=== PATIENT | male | born 1985 | race Native Hawaiian/Other Pacific Islander ===

== ENCOUNTER 2020-02-20 00:30 | Observation (INO) | payer OTHER, SELFPAY ==
[2020-02-20] MEDS ORDERED: Ondansetron PF 4 MG/2 ML Vial IVP PRN ×2 (01:50→14:03)
[2020-02-20] MEDS ORDERED: Acetaminophen 325 MG TAB PO PRN (01:50)
[2020-02-20] MEDS ORDERED: Ondansetron ODT 4 MG TAB PO PRN (01:50)
[2020-02-20] MEDS ORDERED: Acetaminophen 650 MG Suppository PR PRN (01:50)
[2020-02-20 02:16] LABS: #Lymphocytes 1.5 thou/uL (1.20-3.40); #Monocytes 1.3 thou/uL (0.11-0.59); #Neutrophils 13.7 thou/uL (1.40-6.50); %Basophils 0.2 % (0.0-1.0); %Eosinophils 0.1 % (0.0-10.0); %Lymphocytes 9.3 % (21.0-51.0); %Monocytes 7.8 % (0.0-10.0); %Neutrophils 82.6 % (42.0-75.0); Hemoglobin 15.2 g/dL (14.0-18.0); Mean Corpuscular HGB CONC 35.1 g/dL (32.0-36.0); Mean Corpuscular Hemoglobin 31.3 pg (27.0-31.0); Mean Platelet Volume 7.4 fL (7.4-10.4); Platelet Count 372 thou/uL (130-400); RBC Distribution Width 11.8 % (11.5-14.5); Red Blood Cell (RBC) Count 4.87 mill/uL (4.70-6.10); White Blood Cell (WBC) Count 16.6 thou/uL (4.8-10.8)
[2020-02-20 02:34] LABS: Lactic Acid 1.2 mmol/L (0.5-2.2)
[2020-02-20 02:38] LABS: ALT (SGPT) 18 U/L (8-55); AST (SGOT) 10 U/L (5-34); Albumin 4.3 g/dL (3.5-5.0); Alkaline Phosphatase 66 U/L (40-110); Anion Gap 16 mmol/L (10-20); BUN (Urea Nitrogen) 28 mg/dL (8.9-20.6); Bilirubin, Total 1.1 mg/dL (0.2-1.2); CK (CPK) 91 U/L (30-200); CRP (Inflammatory) Less than 0.50 mg/dL (= or < 0.5); Calc. Creatinine Clearance 0 mL/min (70-130); Calcium 8.7 mg/dL (7.8-10.44); Carbon Dioxide 26 mmol/L (22-29); Chloride 105 mmol/L (98-107); Estimated GFR-MDRD 69; Globulin 2.6 g/dL (2.4-3.5); Glucose 226 mg/dL (70-105); Lipase 101 U/L (8-78); Potassium 3.6 mmol/L (3.5-5.1); Protein, Total 6.9 g/dL (6.0-8.3); Sodium 143 mmol/L (136-145)
[2020-02-20] MEDS: Sodium Chloride 0.9% 1,000 ML IV SCH ×2 (03:05→12:07)
--- NOTE | 2020-02-20 03:12 | HP ---
TIME OF ASSESSMENT: 0100 hours. CHIEF COMPLAINT: Persistent nausea, vomiting. PRIMARY CARE PHYSICIAN: None. HISTORY OF PRESENT ILLNESS: The patient is a 34-year-old gentleman who presented to the emergency department today at [facility] for persistent nausea and vomiting. The patient states the nausea and vomiting started on Monday evening after dinner. He recalls having sausage. He states he suddenly began vomiting and since then has had persistent nausea and vomiting that occurs every couple of hours. The patient denies any associated abdominal pain. Has not noted any hematemesis. No changes in his bowel movements. Has not noted any drastic weight loss. He states he is unable to tolerate any p.o. intake due to subsequent vomiting, but the vomiting also occurs sporadically throughout the day. He has not tried taking anything for this at home. He is diabetic, insulin-dependent and compliant with his insulin. He has not started any new medications or supplements. He denies any urinary symptoms. No headaches or dizziness. No chest pain, palpitations, cough, or shortness of breath. All other review of systems are negative. ED COURSE: In the emergency department, the patient had laboratory studies done, which showed a white count of 16.2, hemoglobin 16.5, hematocrit 47.6, platelets 391, neutrophils 87.1%. Potassium 3.7, BUN 30, creatinine 1.41, GFR 58, glucose 339. Sodium 139, calcium 9.6, phosphorus 3.2, magnesium 2.1. LFTs unremarkable, however lipase slightly elevated at 113. Troponin negative. Albumin 4.8. Urinalysis was notable for dark yellow hazy appearing urine with 100 of protein, greater than 1000 of glucose, 150 ketones and 25 of blood. Nitrites negative. Leukocyte esterase negative. He underwent a CT of the head, which showed no acute intracranial abnormality. He had a chest x-ray done, which showed no acute cardiopulmonary abnormality. In the emergency department, he was treated with ondansetron 4 mg IV x2. He was given Novolin 8 units due to glucose of 334. He received 2 L of normal saline. Before being transferred here, he was given 12.5 mg of Phenergan, which did help to alleviate his nausea. The patient states that the Zofran worked as well to control his vomiting. EKG done on presentation showed normal sinus rhythm with a heart rate of 90, no ST changes or T-wave abnormalities. The patient transferred here for further workup and management. PAST MEDICAL HISTORY: Diabetes, insulin dependent. PAST SURGICAL HISTORY: None. SOCIAL HISTORY: The patient is fully independent. He works outside . Denies any tobacco use. He states he did smoke previously. Denies any alcohol consumption. Denies any drug use. Denies cannabis use. FAMILY HISTORY: Noncontributory. ALLERGIES: PENICILLIN. CURRENT MEDICATIONS: Levemir. PHYSICAL EXAMINATION: GENERAL: The patient appears well developed, well nourished, is in no acute distress. He is resting comfortably in bed. Denies any nausea at present. VITAL SIGNS: Temperature 98.9, pulse 95, respirations 18, O2 saturation 98% on room air, blood pressure 148/82. HEENT: Normocephalic and atraumatic. Pupils are equal, round and reactive to light. Sclerae icterus. Oropharynx is clear. NECK: Supple. LUNGS: Clear to auscultation bilaterally without any wheezes, rales, or rhonchi. CARDIAC: Regular rate and rhythm. ABDOMEN: Soft, nontender, nondistended. Normoactive bowel sounds present. No guarding or rigidity. No renal angle tenderness. EXTREMITIES: No lower leg swelling or edema. NEUROLOGIC: Alert and oriented x3. SKIN: Warm and dry. INVESTIGATIONS: As mentioned above in HPI. IMPRESSION AND PLAN: The patient is a pleasant 34-year-old gentleman transferred here for continued workup and management of persistent nausea, vomiting. The patient's symptoms have resolved after Phenergan given prior to transfer. Currently, he is asymptomatic and without complaints. We will continue to manage the followin. Intractable nausea and vomiting. Continue Zofran, which seems to have worked at ED prior to transfer. No associated abdominal discomfort, therefore no indication for CT imaging at this time. Day team to decide regarding imaging. He could be having issues with gastroparesis given his history of diabetes. We will check urine drug screen as there is a possibility the patient may be experiencing cannabis hyperemesis, though he deny any drug use. We will repeat electrolytes. 2. Acute kidney injury. Status post 2 L of normal saline given at outside ED. We will repeat renal function. Continue fluids at 100 mL an hour. We will check CK. No signs or symptoms of kidney stone, but they have blood in the urine. We will order renal ultrasound to be done in the morning. 3. Diabetes. Continue to monitor glucose. Repeat ketones and check venous blood gas. 4. Gastrointestinal prophylaxis. We will start famotidine 20 mg IV b.i.d. 5. Code status full. The patient's case was discussed with the attending who agrees upon care as described above. Job ID: [id number]
[2020-02-20 04:19] VITALS: BMI 30.2
--- NOTE | 2020-02-20 08:13 | ULT ---
Bilateral renal ultrasound CLINICAL INDICATION: Acute renal insufficiency. Red blood cells in urine. COMPARISON: None FINDINGS: Right kidney: There is no evidence of a renal mass, renal calculus, or hydronephrosis seen. The right kidney measures 10.8 cm x 5.3 cm. Left kidney: There is no evidence of a renal mass, renal calculus, or hydronephrosis. The left kidney measures 11.3 cm x 5.8 cm. Urinary bladder: Within normal limits for degree of distention. Ureteral jets are seen bilaterally on color flow evaluation. IMPRESSION: Normal appearance of bilateral kidneys without evidence of hydronephrosis.
[2020-02-20] MEDS: Famotidine/PF 20 mg/2ml Vial SLOW IVP SCH ×2 (08:50→22:05)
[2020-02-20] MEDS ORDERED: FLU VACC QS2020-21(6MOS UP)/PF 60 MCG/0.5 ML SYRINGE IM ONE (09:00)
[2020-02-20] MEDS ORDERED: Insulin Regular 300 UNITS/3 ML VIAL SC PRN (11:46)
[2020-02-20] MEDS ORDERED: HumaLOG 300 UNITS/3 ML VIAL SC PRN (11:46)
[2020-02-20] MEDS ORDERED: Dextrose 50% Abboject 50 ML SYRINGE SLOW IVP PRN (11:46)
[2020-02-20] MEDS ORDERED: Dextrose 5% in Water 1,000 ML IV PRN (11:46)
--- NOTE | 2020-02-20 11:51 | PDOC.HOSPP ---
- Subjective Encounter Date: 02/20/20 Encounter Time: 11:45 Subjective: still nauseated, anorectic - Objective Vital Signs & Weight: Vital Signs (12 hours) Temp Pulse Resp BP BP BP Pulse Ox 02/20/20 11:35 99.0 F 86 16 161/98 H 98 02/20/20 07:28 97.7 F 76 17 154/87 H 99 02/20/20 01:55 98.9 F 95 18 148/82 H 98 Weight Weight 198 lb 6.656 oz I&O: 02/19/20 02/20/20 02/21/20 06:59 06:59 06:59 Intake Total 350 Balance 350 Result Diagrams: 02/20/20 02:07 02/20/20 02:07 Additional Labs: Accuchecks 02/20/20 06:22 POC Glucose 235 H Hospitalist ROS - Medication Medications: Active Medications Generic Name Dose Route Start Last Admin Trade Name Freq PRN Reason Stop Dose Admin Famotidine 20 mg 02/20/20 09:00 02/20/20 08:50 Famotidine/Pf 20 Mg/2ml Vial SLOW IVP 20 mg Q12HR LORETTA Administration Sodium Chloride 1,000 mls @ 100 mls/hr 02/20/20 02:15 02/20/20 03:05 Normal Saline 0.9% IV 1,000 mls .Q10H LORETTA Administration Ondansetron HCl 4 mg 02/20/20 01:50 02/20/20 08:50 Ondansetron Pf 4 Mg/2 Ml Vial IVP 4 mg Q6H PRN Administration Nausea/Vomiting - Exam General Appearance: awake alert Neck: no JVD Heart: RRR, no murmur Respiratory: CTAB Gastrointestinal: soft, non-distended, normal bowel sounds, no palpable masses, no bruit, no guarding, no rigidity Extremities: no edema Hosp A/P (1) Nausea & vomiting Code(s): R11.2 - NAUSEA WITH VOMITING, UNSPECIFIED Status: Acute Qualifiers: Vomiting Intractability: non-intractable (2) DM type 1 (diabetes mellitus, type 1) Status: Chronic Qualifiers: Diabetes mellitus complication status: without complication Qualified Code(s): E10.9 - Type 1 diabetes mellitus without complications - Plan iv fluids antiemetic accu/ss start at 1/2 usual detemir rpt lab in am
[2020-02-20] MEDS ORDERED: Insulin Glargine 15 UNITS in Pre-Filled Syringe 1 EACH SC SCH (12:00)
[2020-02-20] MEDS ORDERED: Lorazepam 2 MG/ML VIAL SLOW IVP PRN (13:50)
[2020-02-20 18:42] LABS: Amphetamine Not Detected (NotDetected); Barbiturates Screen Not Detected (NotDetected); Benzodiazepine Screen Not Detected (NotDetected); Cocaine Metabolite Screen Not Detected (NotDetected); Medtox Control Line Valid? VALID (VALID); Medtox Reader # READER 4; Methadone Not Detected (NotDetected); Methamphetamine Not Detected (NotDetected); Opiate Screen Not Detected (NotDetected); Oxycodone Screen Not Detected (NotDetected); Phencyclidine (PCP) Not Detected (NotDetected); THC/Cannabinoid Screen Not Detected (NotDetected); Tricyclic Screen Not Detected (NotDetected)
[2020-02-21] MEDS: Sodium Chloride 0.9% 1,000 ML IV SCH ×2 (01:52→07:32)
[2020-02-21 06:08] LABS: #Basophils 0.1 thou/uL (0.0-0.2); #Eosinphils 0.1 thou/uL (0.0-0.7); #Lymphocytes 2.8 thou/uL (1.20-3.40); #Monocytes 0.9 thou/uL (0.11-0.59); #Neutrophils 7.7 thou/uL (1.40-6.50); %Basophils 0.8 % (0.0-1.0); %Eosinophils 0.6 % (0.0-10.0); %Monocytes 8.1 % (0.0-10.0); %Neutrophils 66.5 % (42.0-75.0); Hemoglobin 14.1 g/dL (14.0-18.0); Mean Corpuscular HGB CONC 33.5 g/dL (32.0-36.0); Mean Corpuscular Hemoglobin 30.4 pg (27.0-31.0); Mean Corpuscular Volume 90.8 fL (78.0-98.0); Mean Platelet Volume 7.2 fL (7.4-10.4); Platelet Count 348 thou/uL (130-400); RBC Distribution Width 11.5 % (11.5-14.5); Red Blood Cell (RBC) Count 4.63 mill/uL (4.70-6.10); White Blood Cell (WBC) Count 11.5 thou/uL (4.8-10.8)
[2020-02-21 06:21] LABS: Lactic Acid 0.7 mmol/L (0.5-2.2)
[2020-02-21 06:31] LABS: Anion Gap 11 mmol/L (10-20); BUN (Urea Nitrogen) 18 mg/dL (8.9-20.6); Calc. Creatinine Clearance 146 mL/min (70-130); Calcium 8.1 mg/dL (7.8-10.44); Carbon Dioxide 25 mmol/L (22-29); Chloride 107 mmol/L (98-107); Estimated GFR-MDRD Greater than 90; Glucose 152 mg/dL (70-105); Lipase 110 U/L (8-78); Potassium 3.8 mmol/L (3.5-5.1); Sodium 139 mmol/L (136-145)
[2020-02-21] MEDS ORDERED: Insulin Glargine 15 UNITS in Pre-Filled Syringe 1 EACH SC SCH (09:00)
[2020-02-21 10:55] VITALS: BP 135/85; TEMP 98.7
[2020-02-21] MEDS: Famotidine/PF 20 mg/2ml Vial SLOW IVP SCH (12:01)
--- NOTE | 2020-02-21 12:53 | DIS ---
DATE OF ADMISSION: 02/20/2020 DATE OF DISCHARGE: 02/21/2020 PRIMARY CARE PHYSICIAN: Tony Ayers. DISCHARGE DISPOSITION: Home. PRIMARY DISCHARGE DIAGNOSES: 1. Nausea and vomiting. 2. Uncontrolled diabetes. SECONDARY DISCHARGE DIAGNOSES: 1. Diabetes, type 1. 2. Obesity with BMI 30. PRIMARY PROCEDURES/OPERATION: None. RADIOLOGICAL INVESTIGATION: Renal ultrasound, normal. SIGNIFICANT LABORATORY DATA: Hemoglobin 14.1. Creatinine 0.92. Electrolytes normal. Urine drug screen negative. Procalcitonin normal. DISCHARGE MEDICATIONS: 1. Zofran ODT 4 mg q.4 hourly p.r.n. 2. Humalog insulin as per sliding scale. 3. Lantus insulin 25 units subcu daily. 4. Pepcid 20 mg b.i.d. p.r.n. CONTRAINDICATION: None. CODE STATUS: Full code. INPATIENT TUNA PURSE SEINER: None. ALLERGIES: PENICILLIN. DISCHARGE PLAN: Post hospital, the patient will follow up with primary care physician in 1 week. HOSPITAL COURSE: A 34-year-old male who has diabetes, who recently moved from other town and he does not have any PCP, and he was not taking any insulin. He was brought to the emergency room for nausea, vomiting, and uncontrolled diabetes. Routine evaluation in the emergency room was unremarkable. He had leukocytosis that was also improved. He was hydrated with IV fluid as well as his symptoms was controlled with nausea and vomiting medication. His diabetes was out of control, so we started Lantus and Humalog insulin. All new medication prescription sent to his pharmacy. The patient is doing much better today. He wants to go home today. PHYSICAL EXAMINATION: VITAL SIGNS: Currently, temperature 98.7, pulse 73, respiratory rate 20, saturation 99%, and blood pressure 135/85. Weight 198 pounds. GENERAL: The patient is currently alert and awake. No acute distress. HEENT: Head, normocephalic and atraumatic. NECK: Supple. No JVD. No meningeal signs of irritation. LUNGS: Clear to auscultation without any rhonchi or rales. CARDIAC: S1 and S2 regular. No murmur. No gallop. No rub. ABDOMEN: Soft, bowel sounds present, nontender, nondistended. No organomegaly. No masses. EXTREMITIES: No edema. NEUROLOGIC: Nonfocal examination. Job ID: [id number]
== END 2020-02-21 12:37 | disposition home or self-care (01) ==
LOC: T4-B 01:30
PROVIDERS: ADMIT Internal Medicine; ATTEND Internal Medicine
DX: R11.2 Nausea with vomiting, unspecified (principal); E10.9 Type 1 diabetes mellitus without complications; N17.9 Acute kidney failure, unspecified; E66.9 Obesity, unspecified; Z68.30 Body mass index [BMI] 30.0-30.9, adult; Z79.4 Long term (current) use of insulin; Z88.0 Allergy status to penicillin; Z87.891 Personal history of nicotine dependence; Z20.828 Contact with and (suspected) exposure to other viral communicable diseases
CPT/HCPCS: 36415; 36416; 76770; 80048; 80053; 80306; 82010; 82550; 83605; 83690; 83735; 84145; 85025; 86140; 96361; 96374; 96375; 96376; G0378; J1815; J2405; S0028